=== PATIENT | male | born 1990 | race Caucasian/White ===

== ENCOUNTER 2020-05-26 18:17 | Emergency (ER) | payer OTHER ==
[~2020-05-26 18:17] MED LIST: AUGMENTIN 875-1 EACH PO; CLARITIN10 MG PO; FLONASE 0.05% N16 GM; NORFLEX 100 MG100 MG PO; Voltaren Gel 1 % TOP
[2020-05-26 19:31] LABS: HEMOGLOBIN 16.5 gm/dl (14.0-17.5); RED BLOOD COUNT 5.71 M/UL (4.20-5.50)
[2020-05-26 19:54] LABS: BUN/CREATININE RATIO 14 (0-10)
[2020-05-26] MEDS ORDERED: PERCOCET 5/325 T1 EA PO (21:06)
[2020-05-26] MEDS ORDERED: ZOFRAN4 MG PO (21:08)
[2020-05-26] MEDS ORDERED: TORADOL 10 MG T10 MG PO (21:08)
== END 2020-05-26 21:23 | disposition home or self-care (01) ==
LOC: ER1 18:17
PROVIDERS: Physician Assistant Medical
DX: N13.2 Hydronephrosis with renal and ureteral calculous obstruction (principal); F17.290 Nicotine dependence, other tobacco product, uncomplicated
CPT/HCPCS: 80053; 81001; 83690; 85025; 96374; 96375; 99284; J1200; J1885; J2270